=== PATIENT | male | born 1970 | race Caucasian/White ===

== ENCOUNTER 2024-05-23 00:26 | Inpatient (IN) | payer OTHER ==
[~2024-05-23] VITALS: Ht 185.4 cm; Wt 128.4 kg
[2024-05-23 00:28] VITALS: O2SAT 99
[2024-05-23 01:28] LABS: BASOPHILS % 1.1 % (0.0-2.0); CHLORIDE 102 mEq/L (98-107); EOSINOPHILS % 1.7 % (0.0-5.0); HEMATOCRIT. 41.7 % (42.0-52.0); HEMOGLOBIN. 14.4 g/dL (14.0-18.0); LYMPHOCYTES % 21.4 % (20.0-50.0); MEAN CORPUSCULAR HEMOGLOBIN 30.3 pg (28.0-32.0); MEAN CORPUSCULAR HGB CONC 34.4 g/dL (31.0-37.0); MEAN CORPUSCULAR VOLUME 88.1 fL (80.0-94.0); MEAN PLATELET VOLUME 8.3 fl (7.4-10.4); MONOCYTES % 4.2 % (2.0-8.0); NEUTROPHILS % 71.6 % (40.0-76.0); PLATELET 186 x1000/uL (130-400); POTASSIUM 4.8 mEq/L (3.5-5.1); RED BLOOD CELL COUNT 4.73 mill/uL (4.7-6.1); RED CELL DISTRIBUTION WIDTH 13.1 % (11.6-14.6); SODIUM 134 mEq/L (136-145); WHITE BLOOD COUNT 5.1 x1000/uL (4.5-11.0)
[2024-05-23 01:29] LABS: CALCIUM 9.4 mg/dL (8.7-10.4); CARBON DIOXIDE 25 mEq/L (21-32)
[2024-05-23 01:34] LABS: CREATININE 1.2 mg/dL (0.6-1.3); GLUCOSE 113 mg/dL (70-105); UREA NITROGEN BLOOD 15 mg/dL (9-23)
[2024-05-23 01:35] LABS: TROPONIN I HIGH SENSITIVITY 10 ng/L (3.0-53)
[2024-05-23] MEDS: ASPIRIN 325MG TABLET PO ONE (05:50)
[2024-05-23] MEDS: SODIUM CHLORIDE 0.9% 1,000 ML IV ONE (05:50)
[2024-05-23] MEDS: HYDROCODONE/ACETAMINOPHEN 5/325MG TABLET PO PRN (09:49)
[2024-05-23] MEDS: LORAZEPAM 2MG/ML INJ IV NR (12:50)
[2024-05-23] MEDS: HYDRALAZINE 20MG/ML VIAL IV NR (12:57)
[2024-05-23 21:58] VITALS: BP 139/86; PULSE 73; RESP 18; TEMP 36.61404; TEMP 36.6404; O2SAT 96
[2024-05-23] MEDS ORDERED: SERT100T PO (22:56)
[2024-05-23] MEDS ORDERED: ALLO300T2 PO (22:56)
[2024-05-23] MEDS ORDERED: ACETAMINOPHEN 325MG TABLET PO PRN (23:30)
[2024-05-24] VITALS: BP 119/75; PULSE 82; RESP 18; TEMP 36.72516; O2SAT 98
[2024-05-24 04:00] VITALS: BP 139/76; PULSE 79; RESP 19; TEMP 36.3918; O2SAT 98
[2024-05-24 08:00] VITALS: BP 150/80; PULSE 77; RESP 18; TEMP 35.89176; O2SAT 99
[2024-05-24] MEDS: SERTRALINE HCL 100MG TABLET PO SCH (09:31)
[2024-05-24] MEDS: ASPIRIN 81MG TABLET PO SCH (09:31)
[2024-05-24] MEDS: ALLOPURINOL 300 MG TABLET PO SCH (09:31)
[2024-05-24 12:00] VITALS: BP 157/86; PULSE 79; RESP 18; TEMP 36.61404; O2SAT 98
[2024-05-24] MEDS ORDERED: NALOXONE HCL 0.4MG/ML VIAL IV PRN (12:30)
[2024-05-24] MEDS ORDERED: DOCUSATE SODIUM 100MG CAPSULE PO PRN (12:30)
[2024-05-24] MEDS ORDERED: IPRATROPIUM/ALBUTEROL 0.5-3(2.5)MG/3ML NEB HHN PRN (12:30)
[2024-05-24] MEDS ORDERED: ONDANSETRON HCL 4MG/2ML INJ IV PRN (12:30)
[2024-05-24] MEDS ORDERED: CLONIDINE 0.1MG TABLET PO PRN (12:30)
[2024-05-24] MEDS: HYDRALAZINE HCL 25MG TABLET PO SCH (14:51)
[2024-05-24 16:00] VITALS: BP 121/71; PULSE 77; RESP 18; TEMP 36.114; O2SAT 98
[2024-05-24 16:56] LABS: BASOPHILS % 0.8 % (0.0-2.0); EOSINOPHILS % 1.8 % (0.0-5.0); HEMATOCRIT. 43.3 % (42.0-52.0); LYMPHOCYTES % 18.2 % (20.0-50.0); MEAN CORPUSCULAR HEMOGLOBIN 30.6 pg (28.0-32.0); MEAN CORPUSCULAR HGB CONC 34.6 g/dL (31.0-37.0); MEAN CORPUSCULAR VOLUME 88.4 fL (80.0-94.0); MEAN PLATELET VOLUME 8.9 fl (7.4-10.4); MONOCYTES % 5.7 % (2.0-8.0); NEUTROPHILS % 73.5 % (40.0-76.0); PLATELET 163 x1000/uL (130-400); WHITE BLOOD COUNT 4.7 x1000/uL (4.5-11.0)
[2024-05-24 16:59] LABS: CHLORIDE 105 mEq/L (98-107); POTASSIUM 4.4 mEq/L (3.5-5.1); SODIUM 139 mEq/L (136-145)
[2024-05-24 17:01] LABS: CALCIUM 9.8 mg/dL (8.7-10.4); CARBON DIOXIDE 29 mEq/L (21-32)
[2024-05-24 17:06] LABS: CREATININE 1.2 mg/dL (0.6-1.3)
[2024-05-24 17:07] LABS: GLUCOSE 103 mg/dL (70-105); PROTHROMBIN TIME 10.9 sec (9.6-11.0); TRIGLYCERIDE 137 mg/dL (0-150)
[2024-05-24 17:08] LABS: ALANINE AMINOTRANSFERASE 17 IU/L (10-49); ALBUMIN 4.5 g/dL (3.2-4.8); ASPARTATE AMINOTRANSFERASE 20 IU/L (<34); BILIRUBIN DIRECT 0.2 mg/dL (<=3.0); CHOLESTEROL 166 mg/dL (<200); LDL CHOLESTEROL 102 mg/dL (5-100); UREA NITROGEN BLOOD 11 mg/dL (9-23)
[2024-05-24 17:09] LABS: HDL CHOLESTEROL 47 mg/dL (>55); PHOSPHORUS 2.5 mg/dL (2.5-4.9)
[2024-05-24 17:10] LABS: BILIRUBIN TOTAL 0.6 mg/dL (0.1-1.0); PROTEIN TOTAL 6.8 g/dL (6.0-8.3)
[2024-05-24 20:00] VITALS: BP 128/76; PULSE 75; RESP 17; TEMP 37.00296; O2SAT 97
[2024-05-24] MEDS: PNEUMOCOCCAL 20-VAL CONJ-DIP CRM 0.5ML IM ONE (21:00)
[2024-05-24] MEDS ORDERED: INFLUENZA VACCINE 05/PF 0.5 ML SYRINGE IM ONE (21:00)
[2024-05-24] MEDS: ATORVASTATIN CALCIUM 40MG TABLET PO SCH (21:00)
[2024-05-25] VITALS: BP 124/88; PULSE 70; RESP 18; TEMP 36.9474; O2SAT 98
[2024-05-25 04:00] VITALS: BP 122/79; PULSE 85; RESP 17; TEMP 36.72516; O2SAT 98
[2024-05-25 06:26] LABS: CARBON DIOXIDE 28 mEq/L (21-32); CHLORIDE 105 mEq/L (98-107); POTASSIUM 4.2 mEq/L (3.5-5.1); SODIUM 140 mEq/L (136-145)
[2024-05-25 06:27] LABS: CALCIUM 9.7 mg/dL (8.7-10.4)
[2024-05-25 06:30] LABS: CREATININE 1.1 mg/dL (0.6-1.3)
[2024-05-25 06:32] LABS: GLUCOSE 103 mg/dL (70-105); UREA NITROGEN BLOOD 9 mg/dL (9-23)
[2024-05-25 06:34] LABS: PHOSPHORUS 3.7 mg/dL (2.5-4.9)
[2024-05-25 06:42] LABS: BASOPHILS % 1.1 % (0.0-2.0); EOSINOPHILS % 2.9 % (0.0-5.0); HEMOGLOBIN. 15.3 g/dL (14.0-18.0); LYMPHOCYTES % 31.7 % (20.0-50.0); MEAN CORPUSCULAR HEMOGLOBIN 30.2 pg (28.0-32.0); MEAN CORPUSCULAR VOLUME 88.7 fL (80.0-94.0); MONOCYTES % 6.9 % (2.0-8.0); NEUTROPHILS % 57.4 % (40.0-76.0); PLATELET 172 x1000/uL (130-400); RED BLOOD CELL COUNT 5.08 mill/uL (4.7-6.1); RED CELL DISTRIBUTION WIDTH 13.2 % (11.6-14.6); WHITE BLOOD COUNT 5.1 x1000/uL (4.5-11.0)
[2024-05-25 08:00] VITALS: BP 152/81; PULSE 83; RESP 18; TEMP 36.3918; O2SAT 98
[2024-05-25 12:00] VITALS: BP 149/88; PULSE 75; RESP 18; TEMP 36.55848; O2SAT 98
[2024-05-25 16:00] VITALS: BP 134/75; PULSE 79; RESP 18; TEMP 36.3918; TEMP 36.39180; O2SAT 95
[2024-05-25] MEDS ORDERED: AMLO10TA80 MT (18:22)
[2024-05-25] MEDS ORDERED: ASPI-1497 MT (18:22)
[2024-05-25] MEDS ORDERED: LIP40 MT (18:22)
[2024-05-25 18:38] VITALS: BP 134/75; PULSE 79; TEMP 98
== END 2024-05-25 19:16 | disposition home or self-care (01) | DRG 69 ==
LOC: ER 00:26 → EDBEDREQ 05:02 → EDBEDREQTM 05:02 → 5WST 19:26 → 8WST 22:00
PROVIDERS: ADMIT Internal Medicine; ATTEND Internal Medicine
DX: G45.9 Transient cerebral ischemic attack, unspecified (principal); R27.0 Ataxia, unspecified; E78.5 Hyperlipidemia, unspecified; F10.10 Alcohol abuse, uncomplicated; Y90.9 Presence of alcohol in blood, level not specified; F41.9 Anxiety disorder, unspecified; I10 Essential (primary) hypertension; Z79.899 Other long term (current) drug therapy
CPT/HCPCS: 36415; 70551; 71045; 80048; 80061; 80076; 83735; 84100; 84484; 85025; 90686; 90732; 93005; 93306; 97165; 99285; J0360; J2060; J7030